=== PATIENT | male | born 1995 | race Two or more races ===

== ENCOUNTER 2023-04-16 20:43 | Emergency (ER) | payer SELFPAY ==
[~2023-04-16] VITALS: Ht 190.5 cm; Wt 94.4 kg
[2023-04-16 22:51] VITALS: BP 127/81; PULSE 87; RESP 16; TEMP 98.2; O2SAT 98
[2023-04-16] MEDS ORDERED: IBUPROFEN 800 MG TAB PO ONE (23:00)
== END 2023-04-17 02:31 | disposition home or self-care (01) ==
LOC: ER 20:49
DX: R51.9 Headache, unspecified (principal); R10.2 Pelvic and perineal pain; M54.59 Other low back pain; M79.10 Myalgia, unspecified site; V28.49XA Other motorcycle driver injured in noncollision transport accident in traffic accident, initial encounter; Y93.89 Activity, other specified; Y92.89 Other specified places as the place of occurrence of the external cause; Y99.8 Other external cause status
CPT/HCPCS: 70450; 72100; 72125; 72192

== ENCOUNTER 2023-11-26 20:30 | Emergency (ER) | payer BC, OTHER ==
[~2023-11-26] VITALS: Ht 188 cm; Wt 92.0 kg
[2023-11-26] MEDS: HYDROcodone-ACET 10/325MG TAB PO ONE (21:30)
[2023-11-26] MEDS: ONDANSETRON ODT 4 MG TAB PO ONE (21:30)
[2023-11-26] MEDS ORDERED: IBUP-1455 PO (23:14)
[2023-11-26] MEDS ORDERED: HYDR-4902 PO (23:14)
[2023-11-26] MEDS ORDERED: ZOFR4T PO (23:15)
[2023-11-26 23:26] VITALS: BP 111/74; PULSE 53; RESP 17; O2SAT 97
== END 2023-11-26 23:27 | disposition home or self-care (01) ==
LOC: ER 20:30
DX: S22.31XA Fracture of one rib, right side, initial encounter for closed fracture (principal); S16.1XXA Strain of muscle, fascia and tendon at neck level, initial encounter; V29.498A Other motorcycle driver injured in collision with other motor vehicles in traffic accident, initial encounter; Y93.89 Activity, other specified; Y92.410 Unspecified street and highway as the place of occurrence of the external cause; Y99.8 Other external cause status
CPT/HCPCS: 71101; 72040; 99284; Q0162